=== PATIENT | female | born 1990 | race Caucasian/White ===

== ENCOUNTER → 2017-09-15 | Outpatient (CLI) | payer BC ==
--- NOTE | 2017-09-15 10:13 | DIAGNOSTIC IMAGING REPORT ---
MRI OF THE BILATERAL TEMPOROMANDIBULAR JOINTS WITHOUT CONTRAST CLINICAL HISTORY: Bilateral temporomandibular joint pain, clicking and locking. COMPARISON STUDY: No previous studies for comparison. TECHNIQUE: Utilizing a 1.5 Zahraa magnet and dedicated coil, multiplanar, multiecho imaging of the bilateral temporomandibular joints was performed in the open and closed mouth positions. FINDINGS: Right temporomandibular joint: There is abnormal morphology of the right mandibular condyle which is flattened, best shown on coronal projections. There is anterior subluxation of the disc in the closed mouth position. There is abnormal signal and morphology of the disc suggestive of disc degeneration. Greater than expected anterior translation of the mandibular condyle is noted in the open-mouth position. The disc appears appropriately positioned in the open-mouth position. Left temporomandibular joint: There is abnormal morphology of the left mandibular condyle which appears flattened. Anterior subluxation of the disc in the closed mouth position is noted. Abnormal signal morphology of the disks suggestive of disc degeneration is noted. Greater than expected anterior translation of the mandibular condyle is noted in the open-mouth position. The disc appears appropriately positioned in the open-mouth position. IMPRESSION: Right temporomandibular joint: 1. 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 2. Anterior subluxation of the right sided disc with recapture in the open mouth position. Greater than expected anterior translation of the right mandibular condyle in open-mouth position. 3. Abnormal signal and morphology of the right disc suggestive of disc degeneration/tear. Left temporomandibular joint: 1. Abnormal morphology of the left mandibular condyle suggestive of degenerative change. 2. Anterior subluxation of the left disc with recapture in the open mouth position. Greater than expected anterior translation of the left mandibular condyle in open mouth position. 3. Abnormal signal and morphology of the left disc suggestive of disc degeneration/tear. Electronically signed by: Manuel Covington M.D. 09/15/2017 10:12 AM Dictated Date/Time: 09/15/2017 9:12 AM
== END | disposition home or self-care (01) ==
LOC: C.MRI 07:35
PROVIDERS: ATTEND Dentist Oral and Maxillofacial Surgery
DX: G83.5 Locked-in state (principal)